=== PATIENT | male | born 1950 | race Caucasian/White ===

== ENCOUNTER 2017-03-24 09:16 | Observation (INO) ==
[2017-03-24] MEDS ORDERED: IOPAMIDOL 100 ML BOTTLE IJ ONE (09:17)
--- NOTE | 2017-03-24 09:43 | Emergency Department Note ---
General Adult HPI - General Chief complaint: Dental/Oral Stated complaint: Swollen gland and tongue Time Seen by Provider: 03/24/17 09:37 Source: patient Mode of arrival: ambulatory Limitations: no limitations - History of Present Illness HPI Narrative: This patient has had pain and swelling the right side of his neck that has increased over the last several days and now involves the floor the mouth slightly. He did see Dr. Gale was placed on prednisone but no antibiotics. He does take losartan but this is definitely a focal area of firm swelling that is either enlarged lymph node or an abscess. - Related Data Home Medications Medication Instructions Recorded Confirmed amlodipine 10 mg tablet 10 mg PO QDAY 08/11/16 03/21/17 carvedilol 12.5 mg tablet 12.5 mg PO BID 08/11/16 03/21/17 cholecalciferol (vitamin D3) 2,000 2,000 unit PO QDAY cap 08/11/16 03/21/17 unit capsule hydrochlorothiazide 25 mg tablet 25 mg PO QDAY 08/11/16 03/21/17 losartan 100 mg tablet 100 mg PO QDAY 08/11/16 03/21/17 metformin 1,000 mg tablet 1,000 mg PO BID 08/11/16 03/21/17 pravastatin 20 mg tablet 20 mg PO QHS 08/11/16 03/21/17 Previous Rx's Medication Instructions Recorded prednisone 10 mg tablet 0 PO .COMPLEX #30 tab 03/21/17 Allergies Allergy/AdvReac Type Severity Reaction Status Date / Time No Known Intolerances AdvReac Unknown NKDA Verified 03/24/17 09:20 Review of Systems All systems ED: reviewed and negative except as stated. Past Medical History - Past Medical History [facility] Narrative: Medical History (Last Reviewed 03/21/17 @ 16:55 by Gloria Gale DO) Obese (Chronic) Abdominal pain (Chronic) Acute bronchitis (Chronic) Hypercholesterolemia (Chronic) Infected sebaceous cyst (Chronic) Tobacco abuse (Chronic) Hyperlipidemia (Chronic) CAD (coronary artery disease) (Chronic) Joint pain (Chronic) Hypertension, essential (Chronic) DMII (diabetes mellitus, type 2) (Chronic) Muscle pain (Chronic) Past Surgical History (Last Reviewed 03/21/17 @ 16:55 by Gloria Gale DO) H/O colonoscopy (Chronic) H/O knee surgery (Chronic ~2009) H/O shoulder surgery (Chronic ~2000) History of cholecystectomy (Chronic ~2005) History of colonoscopy (Chronic) Family History (Last Reviewed 03/21/17 @ 16:55 by Gloria Gale DO) Mother Diabetes Hypertension, essential Brother Diabetes Father History of open heart surgery - Social History smoking status: Current every day smoker Physical Exam He has a very firm swelling in the right upper neck that is tender. Probably 3 or 4 cm in size. Floor of his mouth underneath his tongue is a little swollen and tender as well. Limitations: no limitations General appearance: alert Head: atraumatic, normocephalic Eye: Present: normal appearance Neurological: Present: alert Psychiatric: Present: normal affect, normal mood Skin: Present: warm, dry, intact Course Vital Signs Temperature 97.2 F 03/24/17 09:17 Pulse Rate 89 03/24/17 09:17 Respiratory Rate 16 03/24/17 09:17 Blood Pressure 167/88 03/24/17 09:17 Pulse Oximetry (%) 95 03/24/17 09:17 Temperature 97.2 F 03/24/17 09:17 Pulse Rate 81 03/24/17 10:17 Respiratory Rate 16 03/24/17 09:17 Blood Pressure 167/88 03/24/17 09:17 Pulse Oximetry (%) 96 03/24/17 10:17 Medical Decision Making - [facility] Narrative Medical decision making narrative: CT scan shows a very swollen right submandibular gland. Patient's white blood count was 19,000. Recommendation was for admission and we will admit him to the hospitalist service and started him on clindamycin. - Lab Data Lab results reviewed: Yes I reviewed the patient's lab results. Result diagrams: 03/24/17 09:59 03/24/17 09:59 Lab Results 03/24/17 03/24/17 Range/Units 09:59 09:59 WBC 19.0 H (4.5-11.0) K/mcL RBC 5.16 (4.50-5.90) M/mcL Hgb 16.2 (13.5-16.5) g/dL Hct 46.9 (41.0-55.0) % POC Hct 48.0 (41.0-55.0) % MCV 90.9 (80.0-100.0) fL MCH 31.4 (26.0-34.0) pg MCHC 34.5 (31.0-36.0) g/dL RDW 13.3 (11.5-14.5) % Plt Count 304 (140-440) K/mcL MPV 8.4 (7.4-10.4) fL Gran % 85.6 H (38.0-78.0) % Lymph % (Auto) 8.9 L (15.5-49.0) % [place] % (Auto) 5.2 (1.0-12.0) % Eos % (Auto) 0.1 (0.0-7.0) % Baso % (Auto) 0.2 (0.0-2.0) % Gran # 16.3 H (1.8-8.0) K/mcL Lymph # (Auto) 1.7 (1.5-4.8) K/mcL [place] # (Auto) 1.0 H (0.1-0.9) K/mcL Eos # (Auto) 0 (0.0-0.7) K/mcL Baso # (Auto) 0 (0.0-0.3) K/mcL POC Sodium 136 (133-145) mmol/L Sodium 134 (133-145) mmol/L POC Potassium 4.1 (3.3-5.1) mmol/L Potassium 4.3 (3.3-5.1) mmol/L POC Chloride 98 (96-108) mmol/L Chloride 95 L (96-108) mmol/L Carbon Dioxide 21 L (22-30) mmol/L POC Total CO2 26 (22-30) mmol/L Anion Gap 18.0 H (8-16) POC BUN 13 (8-23) mg/dl BUN 12 (8-23) mg/dl Creatinine 0.8 (0.7-1.2) mg/dl POC Creatinine 0.6 L (0.7-1.2) mg/dl GFR Calculation 94 Glucose 361 H (70-105) mg/dL POC Glucose 348 H (70-105) mg/dL Calcium 9.4 (8.6-10.4) mg/dl POC WB Ioniz Calcium 1.11 L (1.16-1.32) mmol/L Total Bilirubin 0.3 (0.0-1.0) mg/dL AST 9 (0-37) U/l ALT 11 (0-40) U/l Alkaline Phosphatase 106 (39-117) U/L Total Protein 7.3 (5.9-8.4) gm/dL Albumin 4.0 (3.2-5.2) gm/dL Globulin 3.3 (2.2-3.7) gm/dL Albumin/Globulin Ratio 1.2 (1.0-2.3) - Radiology Data Radiology results reviewed: Yes I reviewed the patient's radiology results. Disposition Pt seen by BACK HAND/PA only: No Clinical Impression: Sialadenitis Disposition: Xfer As Inpt ([facility]) Condition: Good Referrals: Brice Moeller DO [Primary Care Provider] - Time of Disposition: 11:31
[2017-03-24 10:32] LABS: Basophils # (Auto) 0 K/mcL (0.0-0.3); Basophils % (Auto) 0.2 % (0.0-2.0); Eosinophils # (Auto) 0 K/mcL (0.0-0.7); Eosinophils % (Auto) 0.1 % (0.0-7.0); Granulocytes % (Auto) 85.6 % (38.0-78.0); Lymphocytes # (Auto) 1.7 K/mcL (1.5-4.8); Lymphocytes % (Auto) 8.9 % (15.5-49.0); Mean Cell Volume 90.9 fL (80.0-100.0); Mean Corpuscular HGB Conc 34.5 g/dL (31.0-36.0); Mean Corpuscular Hemoglobin 31.4 pg (26.0-34.0); Monocytes % (Auto) 5.2 % (1.0-12.0); Platelet Count 304 K/mcL (140-440); RBC 5.16 M/mcL (4.50-5.90); Red Cell Distribution Width 13.3 % (11.5-14.5)
--- NOTE | 2017-03-24 10:44 | Cat Scan Report ---
CLINICAL INFORMATION: Neck pain and swelling TECHNIQUE: Axial postcontrast enhanced images through the neck. Sagittally and coronally reformatted images. 80 mL contrast material injected. COMPARISON: None. FINDINGS: The right submandibular gland is enlarged with abnormal attenuation. There is mild infiltration of the surrounding fat. Appearance is consistent with right submandibular sialoadenitis. There is a focal calcification consistent with sialolithiasis. This is probably within Conway's duct. There is no duct dilatation. There is no discrete focal mass. No evidence for abscess. Left submandibular gland is negative. Right submandibular gland measures 5.2 x 3.2 x 2.9 cm. Left submandibular gland measures 4.3 x 2.5 x 2.5 cm Parotid glands are negative bilaterally. There is no pathologic lymphadenopathy. No solid or cystic cervical soft tissue mass. Vascular structures are normal. No prevertebral soft tissue swelling. Airway is negative. Lung apices are negative. IMPRESSION: 1. Abnormal right submandibular gland with enlargement and enhancement. Appearance is consistent with sialoadenitis. 2. 4 mm stone, probably an Keira's duct. Findings are consistent with sialolithiasis. Interpreted and Authenticated by: Brice Mayer 03/24/17
[2017-03-24 10:52] LABS: ALT/SGPT 11 U/l (0-40); Albumin/Globulin Ratio 1.2 (1.0-2.3); Alkaline Phosphatase 106 U/L (39-117); Blood Urea Nitrogen 12 mg/dl (8-23)
[2017-03-24] MEDS ORDERED: CLINDAMYCIN 600 MG in DEXTROSE 5% IN WATER 50 ML IV ONE (11:23)
--- NOTE | 2017-03-24 12:33 | Internal Med History&Physical ---
Medical - H&P: [facility] Patient information: Note initiated : 03/24/17 at 12:33 pm Service Date, if different from initiated Date: [] Patient: Mazin Ovalles 66 y/o M admitted on for Swollen gland and tongue. Chief Complaint: [] History of present illness: This is a 66M with vza-vqjwaiq-zllcilcig diabetes mellitus, hypertension, hyperlipidemia, coronary artery disease and tobacco abuse who was in his usual state of health until approximately 10 days ago when he noticed increased swelling and pain of the right side of his cheek and neck. He was seen by his primary care's office 4 days prior to admission. At that time, he requested delaying significant workup due to insurance issues and so was empirically treated with steroids. This did not improve his situation and he presented to the ER today. Swelling makes it such that it is difficult to swallow and his tongue feels swollen. She normally wears dentures but cannot fit these into his mouth because the swelling. He has had no fevers or chills, he is able to swallow his secretions, he denies nausea or vomiting. He reports he had a similar episode several months ago, but it was not as severe. Review of systems: Please see the HPI. Otherwise a comprehensive review of systems is negative or noncontributory to chief complaint. Medical - H&P: PMH Medical history: Xsd-ynqvcqx-barnnkcpo diabetes mellitus type 2 with A1c is 6.7 in August 2016 Refractory hypertension, now controlled on 4 different medications with prior secondary workup including a negative renal ultrasound Hyperlipidemia Coronary artery disease with no anginal symptoms Tobacco abuse Surgical history: Past surgical history is significant for cholecystectomy, right shoulder and right knee surgeries. He does not have any hardware in place. Pertinent family history: Significant for diabetes and hypertension Social history: He works in [employer]. He lives with his , Katelynn. He is a full code and designate his as his surrogate medical decision maker. He smokes a little less than a pack per day. He denies significant alcohol use. He denies recreational drug use. Medical - H&P: Meds Home Medications Medication Instructions Recorded Confirmed Type amlodipine 10 mg tablet 10 mg PO QDAY 08/11/16 03/24/17 History carvedilol 12.5 mg tablet 12.5 mg PO BID 08/11/16 03/24/17 History cholecalciferol (vitamin D3) 2,000 2,000 unit PO QDAY cap 08/11/16 03/24/17 History unit capsule hydrochlorothiazide 25 mg tablet 25 mg PO QDAY 08/11/16 03/24/17 History losartan 100 mg tablet 100 mg PO QDAY 08/11/16 03/24/17 History metformin 1,000 mg tablet 1,000 mg PO BID 08/11/16 03/24/17 History pravastatin 20 mg tablet 20 mg PO QHS 08/11/16 03/24/17 History prednisone 10 mg tablet 0 PO .COMPLEX #30 tab 03/21/17 03/21/17 Rx Allergies Allergy/AdvReac Type Severity Reaction Status Date / Time No Known Intolerances AdvReac Unknown NKDA Verified 03/24/17 09:20 Medical - H&P: Exam - Constitutional Vitals: Temp Pulse Resp BP Pulse Ox 97.2 F 72 16 162/90 96 03/24/17 09:17 03/24/17 12:17 03/24/17 09:17 03/24/17 12:17 03/24/17 12:17 General: Well-developed, well-nourished man who appears his stated age. He appears uncomfortable HEENT: Normocephalic atraumatic. PERRLA. EOMI. He has induration the size of a small orange in his R submandibular region that is tender. Palpation limited d /t tenderness. Neck: Edema as above. No apparent tracheal deviation or thyromegaly. CV: Regular rate and rhythm. No murmurs, rubs or gallops. Respiratory: Lungs are clear to auscultation bilaterally. No acute respiratory distress Abdomen: Soft, nondistended, nontender. Positive bowel tones Extremities: No clubbing, cyanosis or edema. Neuro: Alert and oriented 3. Cranial nerves II through XII are grossly intact. He has no focal motor or sensory deficits. Psych: Normal mood and affect. Medical - H&P: Reslt - Labs CBC & Chem 7: 03/24/17 09:59 03/24/17 09:59 Labs: Short CBC 03/24/17 Range/Units 09:59 WBC 19.0 H (4.5-11.0) K/mcL Hgb 16.2 (13.5-16.5) g/dL Hct 46.9 (41.0-55.0) % Plt Count 304 (140-440) K/mcL BMP 03/24/17 09:59 Sodium 134 Potassium 4.3 Chloride 95 L Carbon Dioxide 21 L BUN 12 Creatinine 0.8 Glucose 361 H Calcium 9.4 Liver Function 03/24/17 Range/Units 09:59 Total Bilirubin 0.3 (0.0-1.0) mg/dL AST 9 (0-37) U/l ALT 11 (0-40) U/l Alkaline Phosphatase 106 (39-117) U/L Albumin 4.0 (3.2-5.2) gm/dL - Impressions Neck CT IMPRESSION: 1. Abnormal right submandibular gland with enlargement and enhancement. Appearance is consistent with sialoadenitis. 2. 4 mm stone, probably an Wheatland's duct. Findings are consistent with sialolithiasis. Medical - H&P: A/P - Narrative A/P Narrative: #Sepsis secondary to acute sialoadenitis with a 4 mm stone in Wheatland's duct -lactate normal. F/U BC. Change to vancomycin and Zosyn (ideally would use Unasyn, but not available) -D/W Dr. Celeste, ENT. He recommends warm compresses. Will also have pt use hard candy as sialogogue -Dr. Celeste will evaluate pt this evening. May need stone extraction at bedside #Anion gap metabolic acidosis -lactic acid normal. Recheck BMP this evening. If persists, will work up further. Maintenance IVF for now. #Vne-txoifnv-orhwceyos diabetes mellitus type 2, uncontrolled with likely component of stress hyperglycemia -Check A1C. Hold metformin. SSI tier 1 #HTN -cont amlodipine and carvedilol. Hold HCTZ and losartan. PRN labetalol #Nicotine dependence--prn nicotine patch #DVT prophylaxis--enoxaparin #Code status--Full. is surrogate MDM.
[2017-03-24] MEDS: HYDROmorphone 2 MG/ML SYRINGE IV PRN ×4 (13:02→19:00)
[2017-03-24] MEDS: 0.9 % SODIUM CHLORIDE 1,000 ML IV SCH (14:00)
[2017-03-24] MEDS ORDERED: DEXTROSE 50% 50 ML VIAL IV PRN (14:09)
[2017-03-24] MEDS ORDERED: VANCOMYCIN PER PHARMACY IV SCH (14:09)
[2017-03-24] MEDS ORDERED: SENNOSIDES 1 TABLET PO PRN (14:09)
[2017-03-24] MEDS ORDERED: ONDANSETRON 4 MG/2 ML VIAL IV PRN (14:09)
[2017-03-24] MEDS ORDERED: DEXTROSE 31 GM ORAL.SUSP PO PRN (14:09)
[2017-03-24] MEDS ORDERED: LABETALOL 5 MG/ML ML IV PRN (14:35)
[2017-03-24] MEDS ORDERED: PIPERACILLIN SODIUM/TAZOBACTAM 4.5 GM in 0.9 % SODIUM CHLORIDE 100 ML IV SCH (15:00)
[2017-03-24] MEDS: amLODIPine 10 MG TABLET PO SCH (15:19)
[2017-03-24] MEDS: PIPERACILLIN SODIUM/TAZOBACTAM 4.5 GM in 0.9 % SODIUM CHLORIDE 100 ML IV SCH ×2 (15:20→21:57)
[2017-03-24 16:00] LABS: Hemoglobin A1C 9.4 % HGB (4.0-6.0)
[2017-03-24] MEDS: 0.9 % SODIUM CHLORIDE 10 ML SYRINGE IV SCH ×2 (16:10→21:20)
[2017-03-24] MEDS: VANCOMYCIN 1,000 MG in 0.9 % SODIUM CHLORIDE 250 ML IV SCH (16:45)
[2017-03-24] MEDS: INSULIN LISPRO 1 UNIT/0.01 ML UNIT SQ SCH ×2 (17:41→21:20)
[2017-03-24] MEDS: CARVEDILOL 12.5 MG TABLET PO SCH (17:42)
[2017-03-24 18:02] LABS: Blood Urea Nitrogen 10 mg/dl (8-23)
[2017-03-24] MEDS ORDERED: SIMVASTATIN 10 MG TABLET PO SCH (21:00)
[2017-03-24] MEDS: HYDROcodone/APAP 5/325MG TABLET PO PRN (21:19)
[2017-03-25] MEDS: 0.9 % SODIUM CHLORIDE 1,000 ML IV SCH ×3 (01:11→11:00)
[2017-03-25] MEDS: HYDROcodone/APAP 5/325MG TABLET PO PRN ×3 (02:03→10:35)
[2017-03-25] MEDS: HYDROmorphone 2 MG/ML SYRINGE IV PRN (02:03)
[2017-03-25] MEDS: PIPERACILLIN SODIUM/TAZOBACTAM 4.5 GM in 0.9 % SODIUM CHLORIDE 100 ML IV SCH (05:08)
[2017-03-25] MEDS: 0.9 % SODIUM CHLORIDE 10 ML SYRINGE IV SCH ×2 (05:08→07:46)
[2017-03-25 05:33] LABS: Mean Cell Volume 91.7 fL (80.0-100.0); Mean Corpuscular HGB Conc 33.3 g/dL (31.0-36.0); Mean Corpuscular Hemoglobin 30.6 pg (26.0-34.0); Platelet Count 281 K/mcL (140-440); RBC 4.87 M/mcL (4.50-5.90); Red Cell Distribution Width 13.5 % (11.5-14.5)
[2017-03-25 05:43] LABS: Blood Urea Nitrogen 10 mg/dl (8-23)
[2017-03-25 06:53] LABS: Band Neutrophils % 4 % (0-10); Eosinophils % (Manual) 1 % (0-7); Lymphocytes % 15 % (15-49); Monocytes % (Manual) 4 % (1-12); Platelet Estimate NORMAL (NORMAL); RBC Morphology NORMAL (NORMAL); Segmented Neutrophils % 74 % (38-78)
[2017-03-25] MEDS: INSULIN LISPRO 1 UNIT/0.01 ML UNIT SQ SCH (08:15)
[2017-03-25] MEDS: CARVEDILOL 12.5 MG TABLET PO SCH (08:18)
[2017-03-25] MEDS: amLODIPine 10 MG TABLET PO SCH (08:34)
[2017-03-25] MEDS ORDERED: ENOXAPARIN 40 MG/0.4 ML SYRINGE SQ SCH (09:00)
[2017-03-25] MEDS: VANCOMYCIN 1,000 MG in 0.9 % SODIUM CHLORIDE 250 ML IV SCH (09:39)
--- NOTE | 2017-03-25 10:05 | Discharge Summary ---
Medical - DS: Prov Patient information: Note initiated : 03/25/17 at 10:00 am Service Date, if different from initiated Date: [] Patient: Mazin Ovalles 66 y/o M admitted on 03/24/17 for Swollen gland and tongue. Chief Complaint: [] Date of admission: 03/24/17 13:55 Discharge date: 03/25/17 Primary care physician: Brice Moeller Attending physician on admission: Zhane Bahena Consults: Dr. Justine Celeste, ENT Attending physician on discharge: Zhane Bahena Medical - DS: Meds - Discharge Medications Prescriptions: HYDROcodone/APAP 5/325MG [Fletcher 5/325Mg] 1 tab PO Q3HP PRN #20 tab PRN Reason: Pain Level 3-6 Amoxicillin/Potassium Clav [Augmentin] 875 mg PO Q12H #28 tab Sennosides [Senokot] 2 tab PO HSP PRN #30 tab PRN Reason: Constipation Active and Home Medications: Home Medications amlodipine 10 mg tablet 10 mg PO QDAY 08/11/16 [History Confirmed 03/24/17 Last Taken 03/23/17] carvedilol 12.5 mg tablet 12.5 mg PO BIDCC 08/11/16 [History Confirmed 03/24/17 Last Taken 03/23/17 19:30] cholecalciferol (vitamin D3) 2,000 unit capsule 2,000 unit PO QDAY cap [History Confirmed 03/24/17 Last Taken 03/20/17] hydrochlorothiazide 25 mg tablet 25 mg PO QDAY 08/11/16 [History Confirmed 03/24 Last Taken 03/23/17 08:00] losartan 100 mg tablet 100 mg PO QDAY 08/11/16 [History Confirmed 03/24/17 Last Taken 03/23/17 08:00] metformin 1,000 mg tablet 1,000 mg PO BIDCC 08/11/16 [History Confirmed Last Taken 03/23/17 19:30] pravastatin 20 mg tablet 20 mg PO QHS 08/11/16 [History Confirmed 03/24/17 Last Taken 03/23/17 19:30] glipiZIDE [Glucotrol Xl] 5 mg PO QAMAC 03/24/17 [History Confirmed 03/24/17 Last Taken Unknown] predniSONE [Prednisone] 0 mg PO .COMPLEX 03/24/17 [History Confirmed 03/24/17 Last Taken 03/24/17 08:00] Medical - DS: Hosp Hospital course: Mr. Ovalles is a 66 year old M with a history of non-insulin dependent diabetes mellitus, hypertension, hyperlipidemia, coronary artery disease and tobacco abuse who presented with a 10 day history of swelling and pain on the right side of his cheek and neck. He was found to have acute right submandibular sialoadenitis and was started on vancomycin and Zosyn. Dr. Celeste with ENT was consulted and performed bedside I&D of the floor the patient's mouth. He is discharged on a 14-day course of Augmentin with plans to follow up with ENT for possible submandibular gland removal in the future. He was hyperglycemic in the hospital and A1c was found to be 9.4. At home he takes metformin and glipizide and states that he has not been very careful with his diet. He received dietary education prior to discharge and is aware that he needs a follow-up with his primary care for tighter diabetic control. Discharge diagnosis: Acute right submandibular sialoadenitis Secondary discharge diagnosis: Sepsis Bsz-yutbwwy-ilewjevpm diabetes mellitus type 2, uncontrolled Hypertension Nicotine dependence - Time Spent with Patient Total time spent providing and/or coordinating discharge services: Greater than 30 minutes Medical - DS: Exam - Constitutional Vitals: Vital Signs Temp Pulse Pulse Resp BP BP Pulse Ox 03/25/17 07:30 98.4 F 16 156/85 94 03/25/17 04:00 99.0 F H 74 16 93 03/25/17 00:00 98.8 F 71 14 133/81 93 03/24/17 20:05 98.6 F 79 18 136/75 93 03/24/17 17:01 96 H 155/92 93 03/24/17 16:13 88 92 03/24/17 16:01 99.2 F H 84 150/89 93 03/24/17 15:01 79 158/85 93 03/24/17 14:45 98.6 F 18 175/93 95 03/24/17 14:16 75 165/85 92 03/24/17 14:12 79 175/93 93 03/24/17 14:10 98.6 F 18 175/93 95 03/24/17 14:01 97.2 F 77 16 168/93 94 03/24/17 13:06 77 168/93 92 03/24/17 12:31 80 168/93 96 03/24/17 12:17 72 162/90 96 03/24/17 11:46 76 162/90 94 03/24/17 11:39 68 162/89 95 03/24/17 11:38 70 162/89 95 03/24/17 10:18 76 162/89 95 03/24/17 10:17 81 96 Intake and Output 03/24/17 03/25/17 03/25/17 21:59 05:59 13:59 Intake Total 783 / 783 1327 / 1327 662 / 662 Output Total 775 / 775 550 / 550 Balance 8 / 8 777 / 777 662 / 662 Intake: IV 483 / 483 967 / 967 662 / 662 Sodium Chloride 0.9% 1,000 ml @ 133 / 133 867 / 867 562 / 562 100 mls/hr IV .Q10H [facility] Rx#: [id number] Zosyn 4.5 gm In Sodium Chloride 100 / 100 100 / 100 100 / 100 0.9% 100 ml @ 100 mls/hr IV Q8H [facility] Rx#:[id number] Vancomycin 1,000 mg In Sodium 250 / 250 Chloride 0.9% 250 ml @ 250 mls/ hr IV Q12H [facility] Rx#:[id number] Oral 300 / 300 360 / 360 Output: Void Amount 775 / 775 550 / 550 Other: Meal Dinner Percent of Meal Consumed 75% Feeding Ability Assist with Tray Set Up # Voids 1 Weight 181 lb Additional comments: General: NAD HEENT: Normocephalic atraumatic. EOMI Neck: R neck swelling improved CV: Regular rate and rhythm. No murmurs, rubs or gallops. Respiratory: Lungs are clear to auscultation bilaterally. No acute respiratory distress Abdomen: Soft, nondistended, nontender. Positive bowel tones Extremities: No clubbing, cyanosis or edema. Neuro: Alert and oriented 3. Medical - DS: Data Procedures and tests throughout hospitalization: CT IMPRESSION: 1. Abnormal right submandibular gland with enlargement and enhancement. Appearance is consistent with sialoadenitis. 2. 4 mm stone, probably an Keira's duct. Findings are consistent with sialolithiasis. Labs on day of discharge: Labs from last 24 hours 03/25/17 03/25/17 03/24/17 04:00 04:00 17:15 WBC 12.8 H RBC 4.87 Hgb 14.9 Hct 44.6 POC Hct MCV 91.7 MCH 30.6 MCHC 33.3 RDW 13.5 Plt Count 281 MPV 8.5 Gran % Lymph % (Auto) [place] % (Auto) Eos % (Auto) Baso % (Auto) Gran # Lymph # (Auto) [place] # (Auto) Eos # (Auto) Baso # (Auto) Total Counted 100 Seg Neutrophils % 74 Band Neutrophils % 4 Lymphocytes % 15 Monocytes % (Manual) 4 Eosinophils % (Manual) 1 Reactive Lymphocytes 2 Platelet Estimate Normal RBC Morphology Normal VBG Lactic Acid POC Sodium Sodium 136 136 POC Potassium Potassium 3.7 3.9 POC Chloride Chloride 97 96 Carbon Dioxide 26 23 POC Total CO2 Anion Gap 13.0 17.0 H POC BUN BUN 10 10 Creatinine 0.7 0.7 POC Creatinine GFR Calculation 100 100 Glucose 190 H 249 H POC Glucose Hemoglobin A1c Estim Average Glucose Calcium 8.7 9.0 POC WB Ioniz Calcium Total Bilirubin AST ALT Alkaline Phosphatase Total Protein Albumin Globulin Albumin/Globulin Ratio 03/24/17 03/24/17 03/24/17 11:59 09:59 09:59 WBC RBC Hgb Hct POC Hct 48.0 MCV MCH MCHC RDW Plt Count MPV Gran % Lymph % (Auto) [place] % (Auto) Eos % (Auto) Baso % (Auto) Gran # Lymph # (Auto) [place] # (Auto) Eos # (Auto) Baso # (Auto) Total Counted Seg Neutrophils % Band Neutrophils % Lymphocytes % Monocytes % (Manual) Eosinophils % (Manual) Reactive Lymphocytes Platelet Estimate RBC Morphology VBG Lactic Acid 1.2 POC Sodium 136 Sodium 134 POC Potassium 4.1 Potassium 4.3 POC Chloride 98 Chloride 95 L Carbon Dioxide 21 L POC Total CO2 26 Anion Gap 18.0 H POC BUN 13 BUN 12 Creatinine 0.8 POC Creatinine 0.6 L GFR Calculation 94 Glucose 361 H POC Glucose 348 H Hemoglobin A1c 9.4 H Estim Average Glucose 223 Calcium 9.4 POC WB Ioniz Calcium 1.11 L Total Bilirubin 0.3 AST 9 ALT 11 Alkaline Phosphatase 106 Total Protein 7.3 Albumin 4.0 Globulin 3.3 Albumin/Globulin Ratio 1.2 11/16/17 09:59 WBC 19.0 H RBC 5.16 Hgb 16.2 Hct 46.9 POC Hct MCV 90.9 MCH 31.4 MCHC 34.5 RDW 13.3 Plt Count 304 MPV 8.4 Gran % 85.6 H Lymph % (Auto) 8.9 L [place] % (Auto) 5.2 Eos % (Auto) 0.1 Baso % (Auto) 0.2 Gran # 16.3 H Lymph # (Auto) 1.7 [place] # (Auto) 1.0 H Eos # (Auto) 0 Baso # (Auto) 0 Total Counted Seg Neutrophils % Band Neutrophils % Lymphocytes % Monocytes % (Manual) Eosinophils % (Manual) Reactive Lymphocytes Platelet Estimate RBC Morphology VBG Lactic Acid POC Sodium Sodium POC Potassium Potassium POC Chloride Chloride Carbon Dioxide POC Total CO2 Anion Gap POC BUN BUN Creatinine POC Creatinine GFR Calculation Glucose POC Glucose Hemoglobin A1c Estim Average Glucose Calcium POC WB Ioniz Calcium Total Bilirubin AST ALT Alkaline Phosphatase Total Protein Albumin Globulin Albumin/Globulin Ratio Medical - DS: A/P - Patient/Caregiver Discharge Instructions Activity: resume usual activities as tolerated Diet: Consistent Carbohydrate Additional Instructions: Continue to use warm compresses to help abscess drainage. You can use hydrocodone for pain. This can be constipating so use Senna to make sure you' re having regular bowel movements. Eat yogurt twice daily to prevent thrush and diarrhea. Take your antibiotics (Augmentin/amoxicillin clavulanic acid) until gone (2 weeks). Follow-up with Dr. Celeste as scheduled. Return to care if you develop fever, worsening pain or swelling. Your A1c was 9.4 this admission. Continue to work on diet and exercise. Follow up with your doctor to discuss intensifying your diabetic medication regimen. Prescriptions: HYDROcodone/APAP 5/325MG [Fletcher 5/325Mg] 1 tab PO Q3HP PRN #20 tab PRN Reason: Pain Level 3-6 Amoxicillin/Potassium Clav [Augmentin] 875 mg PO Q12H #28 tab Sennosides [Senokot] 2 tab PO HSP PRN #30 tab PRN Reason: Constipation - Follow up Plan Follow up with: Brice Moeller DO [Primary Care Provider] - 03/28/17 2:00 pm Justine Celeste DO [Physician] - 04/07/17 9:30 am (Dr. Celeste's office will mail you some paperwork to fill out and bring with you to your appointment along with your insurance card. Please arrive at 9:15 for your 9:30 appt. ) Disposition: Home, Self-Care Prognosis: Good Rehab Potential: Good I certify that the patient requires SNF services: No Overall status at discharge: patient is progressing back to baseline (after seen by dietitian) Medical - DS: Qual - VTE Deep Vein Thrombosis/Pulmonary Embolism Present on Admission: No
--- NOTE | 2017-03-25 10:05 | Consultation ---
DATE OF CONSULTATION: 03/24/2017 CONSULTING PHYSICIAN: Zhane Bahena M.D. REASON FOR CONSULTATION: Right neck swelling. HISTORY OF PRESENT ILLNESS: The patient is a 66-year-old male who is a type 2 diabetic that has had several days of right neck pain and swelling. He was having a difficult time swallowing today and felt like his tongue was swelling up, so he went to the ER. Within the ER, they got a CT scan which showed definite swelling of the right submandibular gland with a 4 to 5 mm stone within the duct. He did have an elevated white count and thus was admitted on IV antibiotics, and I was consulted. I saw the patient at the bedside today and talked to him. He is in some discomfort in the right neck but is overall feeling better since he has had some IV medication. He did say that he had one episode of this several weeks ago but not near as significant as this event. He has denied any fevers or chills. He has had no recent dental work or does not complain of any dental pain. REVIEW OF SYSTEMS: 11 systems were reviewed and unless discussed in the HPI were otherwise negative. He has been in good health as of recent with no major complaints. PAST MEDICAL HISTORY: He has type 2 diabetes, hypertension, hyperlipidemia, coronary artery disease, and tobacco use. PAST SURGICAL HISTORY: He has had a cholecystectomy, right shoulder surgery, and right knee surgery. FAMILY HISTORY: Father with diabetes and hypertension, but nothing that is contributory towards his neck infection today. SOCIAL HISTORY: Does work in [employer] and is . He is a F[employer]. He smokes a half a pack to a full pack in a day. He is a social drinker. HOME MEDICATIONS: 1. Amlodipine. 2. Coreg. 3. Cholecalciferol. 4. Hydrochlorothiazide. 5. Losartan. 6. Metformin. 7. Pravastatin. 8. Prednisone. Dosage and regimens can be found in the EMR. ALLERGIES: No known drug allergies. PHYSICAL EXAMINATION: VITAL SIGNS: Stable. The patient was afebrile with a pulse of 72 and a normal pulse ox. GENERAL: He is well-developed and well-nourished. He was comfortable lying in his ICU bed. HEENT: Shows head and neck that are atraumatic. He does have some obvious swelling in the right neck. There is tenderness over the right submandibular triangle. As far as the eye exam, shows pupils are equally reactive and round to light with accommodation. He also has good muscle function in the eyes bilaterally. Intraoral exam shows diffuse swelling of the right floor of mouth. He does have some purulence at the opening of the Keira's duct on the right side. There was fluctuance palpated in the floor of the mouth as well. The rest of the oropharyngeal exam was relatively benign. He did not have any respiratory distress from an oropharyngeal standpoint nor was he at any risk at this point. NECK: With the edema stated as above within the right neck. No obvious fluctuance was felt in the lateral neck on the right. RESPIRATORY: Lungs were clear. No evidence of any stridor. HEART: Showed regular rate and rhythm. ABDOMEN: Obese but soft and nontender. EXTREMITIES: He did not have any edema, rash, or cyanosis in the extremities. NEUROLOGIC: He is alert and oriented x3. Cranial nerves are all intact. He does still have good movement of the facial nerve on the right side and hypoglossal nerve on the right side as well. PYSCHIATRIC: He has normal mood and affect. MUSCULOSKELETAL: He had gross symmetric strength in his upper and lower extremities. LABORATORY DATA: Showed a white count of 19 with an H and H of 16 and 46. Platelets of 304. He did have an elevated blood sugar 361. The rest of his chemistry labs and liver function looked normal. PROCEDURE: After consent was obtained and risks were discussed, the patient's floor of mouth underwent an incision and drainage. I did use some 1% local around the right submandibular duct to numb it up. Using an 11 blade, the duct itself was opened up. The abscess within the duct was then broken up using small scissors. Thick purulence was secreted out of the duct and applying pressure to the lateral neck significantly increased the amount of purulence that was drained. No obvious stone was located in that distal duct. Looking at the CT scan, it looks to be more of a centrally located stone within the gland itself. Approximately 5 mL of purulence was drained out of this region. The patient did tolerate it well. There was very minimal bleeding from this area. ASSESSMENT: 1. Acute right submandibular sialadenitis. 2. SIRS. 3. Type 2 diabetic with current hyperglycemia. 4. Hypertension. PLAN: The patient is on vancomycin as well as Zosyn right now for antibiotic coverage. I think this is likely adequate. I recommended 2 weeks of antibiotics when he is discharged. Suggested Augmentin or clindamycin, depending on what he is tolerating. Incision and drainage should help him relieve most of the infection in that region. I have recommended warm compresses every couple hours while he is awake, as well as sour candies to keep the saliva stimulated. We will recheck labs in the morning to make sure that his WBC and labs are trending in the right direction. Otherwise, he will likely need removal of this gland, as well as the submandibular stone on the right side. We will wait for the inflammation to go down at this point as long as he clinically improves. As far as his infection and diabetes, the hospital team is managing that adequately. We will keep an eye on him and see him several weeks after discharge. I appreciate the consult. SPcatia Job ID: [id number] Doc ID: [id number] Justine Celeste DO
== END 2017-03-25 11:55 | disposition home or self-care (01) ==
LOC: ED 09:16 → ICU 13:55 → INTOOBSV 13:55 → ICU 14:00
PROVIDERS: ADMIT Internal Medicine; ATTEND Internal Medicine